=== PATIENT | female | born 1990 | race Caucasian/White ===

== ENCOUNTER 2018-10-18 18:07 | Emergency (ER) | payer OTHER ==
[2018-10-18 18:22] VITALS: BP 124/79; PULSE 56; TEMP 98.5; BMI 29.8
--- NOTE | 2018-10-18 19:05 | PDOC ---
History of Present Illness - General Chief Complaint: Cold Symptoms Stated Complaint: CHEST PAIN Time Seen by Provider: 10/18/18 18:23 History Source: Patient - History of Present Illness Presenting Symptoms: Chest Pain Past History - Past Medical History Allergies/Adverse Reactions: Allergies Allergy/AdvReac Type Severity Reaction Status Date / Time No Known Allergies Allergy Verified 09/01/15 01:32 Home Medications: Ambulatory Orders Methotrexate Sodium [Methotrexate] 2.5 mg PO ASDIR 10/18/18 Prednisone 5 mg PO ASDIR 10/18/18 Sulfasalazine 500 mg PO ASDIR 10/18/18 Sulfasalazine [Azulfidine] 500 mg PO ASDIR 10/18/18 Tocilizumab [Actemra] 162 mg SQ ASDIR 10/18/18 COPD: No - Immunization History Immunization Up to Date: Yes - Suicide/Smoking/Psychosocial Hx Smoking History: Never smoked Have you smoked in the past 12 months: No Number of Cigarettes Smoked Daily: 0 Cigars Per Day: 0 Information on smoking cessation initiated: No Hx Alcohol Use: No Drug/Substance Use Hx: No Substance Use Type: None Review of Systems - Review of Systems Constitutional: No: Chills, Fever Respiratory: No: Shortness of Breath Cardiac (ROS): No: Lightheadedness, Palpitations, Chest Tightness ABD/GI: No: Nausea, Vomiting *Physical Exam - Vital Signs Last Vital Signs Temp Pulse Resp BP Pulse Ox 98.5 F 56 L 17 124/79 99 10/18/18 18:17 10/18/18 18:17 10/18/18 18:17 10/18/18 18:17 10/18/18 18:17 - Physical Exam General Appearance: Yes: Appropriately Dressed. No: Apparent Distress HEENT: positive: Normal Voice Neck: positive: Supple. negative: Lymphadenopathy (R), Lymphadenopathy (L) Respiratory/Chest: positive: Lungs Clear, Normal Breath Sounds. negative: Respiratory Distress Cardiovascular: positive: Regular Rate, S1, S2 Integumentary: positive: Dry, Warm Neurologic: positive: Fully Oriented, Alert, Normal Mood/Affect Moderate Sedation - Procedure Monitoring Vital Signs: Procedure Monitoring Vital Signs Temperature 98.5 F 10/18/18 18:17 Pulse Rate 56 L 10/18/18 18:17 Respiratory Rate 17 10/18/18 18:17 Blood Pressure 124/79 10/18/18 18:17 O2 Sat by Pulse Oximetry (%) 99 10/18/18 18:17 ED Treatment Course - ADDITIONAL ORDERS Additional order review: Laboratory Results 10/18/18 19:00 Urine HCG, Qual Negative - RADIOLOGY Radiology Studies Ordered: Category Date Time Status CHEST PA & LAT [RAD] Stat Radiology 10/18/18 19:00 Taken Medical Decision Making - Medical Decision Making 10/18/18 19:00 27-year-old female, history of RA, not currently on steroids, here with intermittent chest tightness for several days. No shortness of breath, palpitations, URI symptoms, fever or chills. States whenever she gets symptoms she gets anxious. Was seen in urgent care today and had a EKG done and was told it was normal, but referred to ER for x-ray machine at urgent care was malfunctioning per patient. Currently asymptomatic. No obvious risk factors for DVT, PE. No similar sxs in past See exam Chest tightness Unlikely cardiac, PERCs out, no recent uri, possible anxiety component Neg EKG at today (has copy on person demonstrating NSR w/ no abnl) Sent to ED for CXR Pt well tracey and stable w/ clear chest/lungs -cxr pending -anticipate dc w/ pmd f/u 10/18/18 20:01 X-ray negative. Patient discharged in stable condition to follow-up with her PMD *DC/Admit/Observation/Transfer Diagnosis at time of Disposition: Chest tightness - Discharge Dispostion Disposition: HOME Condition at time of disposition: Good - Referrals Referrals: Brayan Salomon MD [Primary Care Provider] - - Patient Instructions Printed Discharge Instructions: DI for Chest Pain Additional Instructions: The cause of your symptoms are unclear at this time as your exam and chest x- ray were normal. If symptoms persist, please follow-up with your PMD - Post Discharge Activity
== END 2018-10-18 20:04 | disposition home or self-care (01) ==
LOC: JERFT 18:07
DX: R07.89 Other chest pain (principal); M06.9 Rheumatoid arthritis, unspecified
CPT/HCPCS: 71046-TC-FY; 84703; 99281-25

== ENCOUNTER 2019-04-24 23:35 | Emergency (ER) | payer OTHER ==
[2019-04-25 00:11] VITALS: BP 145/92; PULSE 64; TEMP 98.4; BMI 29.5
--- NOTE | 2019-04-25 00:39 | PDOC ---
History of Present Illness - General Chief Complaint: Pain, Acute Stated Complaint: BLOOD CLOT-RIGHT LEG Time Seen by Provider: 04/25/19 00:39 - History of Present Illness Initial Comments: 04/25/19 00:44 Ms. Tomlin is a 28 yo female w/ pmh of anemia and childhood rheumatoid arthritis who presents for evaluation of R calf pain. Patient reports she is concerned she may have a blood clot as she has been reading online about her symptoms. Reports pain has been intermittent over the last several days and pain is exacerbated by moving her leg. Denies any prolonged immobilization or other symptoms at this time. The patient denies chest pain, shortness of breath, headache and dizziness. Denies fever, chills, nausea, vomit, diarrhea and constipation. Denies dysuria, frequency, urgency and hematuria. Past History - Past Medical History Allergies/Adverse Reactions: Allergies Allergy/AdvReac Type Severity Reaction Status Date / Time No Known Allergies Allergy Verified 09/01/15 01:32 Home Medications: Ambulatory Orders Methotrexate Sodium [Methotrexate] 2.5 mg PO ASDIR 10/18/18 Prednisone 5 mg PO ASDIR 10/18/18 Sulfasalazine 500 mg PO ASDIR 10/18/18 Sulfasalazine [Azulfidine] 500 mg PO ASDIR 10/18/18 Tocilizumab [Actemra] 162 mg SQ ASDIR 10/18/18 Cephalexin [Keflex] 500 mg PO BID #14 capsule 04/25/19 COPD: No - Immunization History Immunization Up to Date: Yes - Suicide/Smoking/Psychosocial Hx Smoking History: Never smoked Have you smoked in the past 12 months: No Number of Cigarettes Smoked Daily: 0 Cigars Per Day: 0 Information on smoking cessation initiated: No Hx Alcohol Use: No Drug/Substance Use Hx: No Substance Use Type: None Review of Systems - Review of Systems Comments:: 04/25/19 00:46 GENERAL/CONSTITUTIONAL: No fever or chills. No weakness. HEAD, EYES, EARS, NOSE AND THROAT: No change in vision. No ear pain or discharge. No sore throat. CARDIOVASCULAR: No chest pain or shortness of breath RESPIRATORY: No cough, wheezing, or hemoptysis. GASTROINTESTINAL: No nausea, vomiting, diarrhea or constipation. GENITOURINARY: No dysuria, frequency, or change in urination. MUSCULOSKELETAL: +R calf pain as described. No neck or back pain. SKIN: No rash NEUROLOGIC: No headache, vertigo, loss of consciousness, or change in strength/ sensation. ENDOCRINE: No increased thirst. No abnormal weight change HEMATOLOGIC/LYMPHATIC: No anemia, easy bleeding, or history of blood clots. ALLERGIC/IMMUNOLOGIC: No hives or skin allergy. *Physical Exam - Vital Signs Last Vital Signs Temp Pulse Resp BP Pulse Ox 98.4 F 64 18 145/92 100 04/24/19 23:40 04/24/19 23:40 04/24/19 23:40 04/24/19 23:40 04/24/19 23:40 - Physical Exam Comments: 04/25/19 00:47 GENERAL: Awake, alert, and fully oriented, in no acute distress HEAD: No signs of trauma, normocephalic, atraumatic EYES: PERRLA, EOMI, sclera anicteric, conjunctiva clear ENT: Auricles normal inspection, hearing grossly normal, nares patent, oropharynx clear without exudates. Moist mucosa NECK: Normal ROM, supple, no lymphadenopathy, JVD, or masses LUNGS: No distress, speaks full sentences, clear to auscultation bilaterally HEART: Regular rate and rhythm, normal S1 and S2, no murmurs, rubs or gallops, peripheral pulses normal and equal bilaterally. ABDOMEN: Soft, nontender, normoactive bowel sounds. No guarding, no rebound. No masses EXTREMITIES: +Pain w/ palpation of R calf and flexing of foot. Mild warmth/ redness to right calf. Otherwise normal inspection, Normal range of motion, no edema. No clubbing or cyanosis. NEUROLOGICAL: Cranial nerves II through XII grossly intact. Normal speech, normal gait, no focal sensorimotor deficits SKIN: Warm, Dry, normal turgor, no rashes or lesions noted. 04/25/19 03:03 Medical Decision Making - Medical Decision Making 04/25/19 02:44 Ms. Tomlin is a 28 yo female w/ pmh as described who presents for evaluation of R calf pain. Patient denies any trauma, refuses any pain medication at this time. Patient evaluated with RLE US for r/o DVT. US negative for acute process. Patient given return precautions and will f/u outpatient as needed for further evaluation. Rx sent for prophylaxis for possible mild cellulitis given warmth/ redness. No other concern for acute process at this time. Discharging to home. *DC/Admit/Observation/Transfer Diagnosis at time of Disposition: Right calf pain - Discharge Dispostion Disposition: HOME - Prescriptions Prescriptions: Cephalexin [Keflex] 500 mg PO BID #14 capsule - Referrals Referrals: Brayan Salomon MD [Primary Care Provider] - - Patient Instructions Printed Discharge Instructions: DI for Calf Muscle Strain Additional Instructions: You were evaluated today in the ER for your calf pain. We performed an Ultrasound which was negative for any emergent process. We also sent a prescription to your pharmacy for prophylaxis. Take all medications as proscribed. We believe you are safe for discharge at this time. Please follow- up next week with primary care provider for further evaluation. Return to ER if any fever, chills, worsening of pain, or other concerning symptoms. - Post Discharge Activity
[2019-04-25] MEDS ORDERED: CEPHALEXIN MONOHYDRATE 500 MG CAPSULE (UD) PO ONE (03:01)
--- NOTE | 2019-04-25 03:03 | PDOC ---
Attending Attestation - Resident Resident Name: Jamie Aquino - ED Attending Attestation I have performed the following: I have examined & evaluated the patient, The case was reviewed & discussed with the resident, I agree w/resident's findings & plan - HPI HPI: 04/25/19 03:03 Pt has redness on her right lower leg; looks cellulitic. She is anxious that she may have a blood clot. - Physicial Exam PE: 04/25/19 03:07 Agree with resident exam - Medical Decision Making 04/25/19 03:07 Pt will get keflex for cellulitis; her sono ruled out DVT 04/25/19 03:33 Patient Name: MARIA ESTHER SCHOFIELD THIS IS A PRELIMINARY REPORT FROM [facility] CLERK DATE OF SERVICE: 2019-04-25 00:47:36 IMAGES: 21 EXAM: VENOUS DUPLEX UNILATERAL No evidence for DVT or politeal cyst right lower extremity
[2019-04-25] MEDS ORDERED: CEPHALEXIN MONOHYDRATE 500 MG CAPSULE (UD) ONE (03:05)
== END 2019-04-25 03:18 | disposition home or self-care (01) ==
LOC: JER 23:35
DX: S86.111A Strain of other muscle(s) and tendon(s) of posterior muscle group at lower leg level, right leg, initial encounter (principal); X58.XXXA Exposure to other specified factors, initial encounter; Y93.89 Activity, other specified; Y92.89 Other specified places as the place of occurrence of the external cause; Y99.8 Other external cause status; M79.661 Pain in right lower leg
CPT/HCPCS: 93971-TC; 99281-25

== ENCOUNTER 2019-06-07 22:16 | Emergency (ER) | payer OTHER | END 2019-06-07 23:47 | disposition home or self-care (01) | LOC: FER 22:16 ==

== ENCOUNTER 2022-05-25 09:02 | Day surgery (SDC) | payer OTHER ==
[~2022-05-25 09:02] MED LIST: ACETAMINOPHEN 500 MG TABLET (FP) PO ONE; DEXTROSE 5% IVPB ONE; METHYLPREDNISOLONE NA SUCC IVPB ONE; RITUXIMAB-ABBS 1,000 MG in DEXTROSE 5%-WATER - 400 ML IVPB ONE; WATER IVPB ONE; diphenhydrAMINE HCL 25 MG CAPSULE (FP) PO ONE
[2022-05-25] MEDS ORDERED: methylPREDNISolone NA SUCC 125 MG/2 ML VIAL IVPB ONE (09:30)
[2022-05-25] MEDS ORDERED: ACETAMINOPHEN 500 MG TABLET (FP) PO ONE (09:30)
[2022-05-25] MEDS ORDERED: diphenhydrAMINE HCL 25 MG CAPSULE (FP) PO ONE (09:30)
[2022-05-25] MEDS ORDERED: RITUXIMAB-ABBS 1,000 MG in DEXTROSE 5%-WATER - 400 ML IVPB ONE (10:00)
[2022-05-25 17:07] VITALS: BP 134/87; PULSE 72; RESP 18; TEMP 98.7
== END 2022-05-25 15:45 | disposition home or self-care (01) ==
LOC: JONCCHEMO 09:02 → J7W 09:04 → JONCCHEMO 15:45
PROVIDERS: ATTEND Internal Medicine Rheumatology
PROC: 3E03305 Introduction of Other Antineoplastic into Peripheral Vein, Percutaneous Approach (ICD-10-PCS; principal; 2022-05-25)
PROC: 3E0333Z Introduction of Anti-inflammatory into Peripheral Vein, Percutaneous Approach (ICD-10-PCS; 2022-05-25)
DX: Z51.11 Encounter for antineoplastic chemotherapy (principal); M08.88 Other juvenile arthritis, other specified site
CPT/HCPCS: 96367; 96413; 96415; Q5115

== ENCOUNTER 2022-06-08 09:32 | Day surgery (SDC) | payer OTHER ==
[~2022-06-08 09:32] MED LIST changes: -DEXTROSE 5% IVPB ONE; +METHYLPREDNISOLONE NA SUCC 100 MG in SODIUM CHLORIDE 50 ML IVPB ONE; -METHYLPREDNISOLONE NA SUCC IVPB ONE; -WATER IVPB ONE
[2022-06-08 15:45] VITALS: BP 151/83; PULSE 77; RESP 18; TEMP 99
== END 2022-06-08 15:45 | disposition home or self-care (01) ==
LOC: JONCCHEMO 09:32 → J7W 09:34 → JONCCHEMO 15:45
PROVIDERS: ATTEND Internal Medicine Rheumatology
PROC: 3E033GC Introduction of Other Therapeutic Substance into Peripheral Vein, Percutaneous Approach (ICD-10-PCS; principal; 2022-06-08)
DX: M08.80 Other juvenile arthritis, unspecified site (principal)
CPT/HCPCS: 96367; 96413; 96415; Q5115

== ENCOUNTER 2023-01-11 08:25 | Day surgery (SDC) | payer OTHER ==
[2023-01-11] MEDS ORDERED: ACETAMINOPHEN 500 MG TABLET (FP) PO ONE (10:00)
[2023-01-11] MEDS ORDERED: diphenhydrAMINE HCL 25 MG CAPSULE (FP) PO ONE (10:00)
[2023-01-11] MEDS ORDERED: METHYLPREDNISOLONE NA SUCC 100 MG in SODIUM CHLORIDE 50 ML IVPB ONE (10:00)
[2023-01-11] MEDS ORDERED: RITUXIMAB-ABBS 1,000 MG in DEXTROSE 5%-WATER - 400 ML IVPB ONE (10:30)
[2023-01-11 17:02] VITALS: PULSE 77; RESP 18; TEMP 98.4
[2023-01-11 17:05] VITALS: BP 121/66
== END 2023-01-11 14:30 | disposition home or self-care (01) ==
LOC: JCHEMO 08:25 → J7W 08:29 → JCHEMO 14:30
PROVIDERS: ATTEND Internal Medicine Rheumatology
DX: M08.90 Juvenile arthritis, unspecified, unspecified site (principal)
CPT/HCPCS: 96367; 96413; 96415; Q5115

== ENCOUNTER 2023-01-25 08:42 | Day surgery (SDC) | payer OTHER ==
[2023-01-25] MEDS ORDERED: ACETAMINOPHEN 500 MG TABLET (FP) PO ONE (10:00)
[2023-01-25] MEDS ORDERED: METHYLPREDNISOLONE NA SUCC 100 MG in SODIUM CHLORIDE 50 ML IVPB ONE (10:00)
[2023-01-25] MEDS ORDERED: diphenhydrAMINE HCL 25 MG CAPSULE (FP) PO ONE (10:00)
[2023-01-25] MEDS ORDERED: RITUXIMAB-ABBS 1,000 MG in DEXTROSE 5%-WATER - 400 ML IVPB ONE (10:30)
[2023-01-25 15:52] VITALS: BP 134/75; PULSE 65; RESP 20; TEMP 983
== END 2023-01-25 15:20 | disposition home or self-care (01) ==
LOC: JCHEMO 08:42 → J7W 08:42 → JCHEMO 15:20
PROVIDERS: ATTEND Internal Medicine Rheumatology
DX: M08.80 Other juvenile arthritis, unspecified site (principal)
CPT/HCPCS: 96413; 96415; Q5115

== ENCOUNTER 2023-04-13 19:12 | Emergency (ER) | payer OTHER ==
[2023-04-13 19:43] VITALS: BMI 27.3
[2023-04-13 20:48] LABS: HEMATOCRIT 43.6 % (32.4-45.2); HEMOGLOBIN 15.3 GM/dL (10.7-15.3); MCH 31.9 pg (25.7-33.7); MCHC 35.1 g/dl (32.0-36.0); MEAN CELL VOLUME 90.9 fl (80-96); MEAN PLT VOLUME 7.4 fl (7.5-11.1); PLATELET COUNT 433 10^3/uL (134-434); WHITE BLOOD COUNT 6.7 K/mm3 (4.0-10.0)
[2023-04-13] MEDS ORDERED: MIDAZOLAM HCL 2 MG/2 ML SINGLE DOSE VIAL IVPUSH ONE (20:59)
[2023-04-13] MEDS ORDERED: MIDAZOLAM HCL 2 MG/2 ML SINGLE DOSE VIAL ONE ×3 (21:00→21:52)
[2023-04-13 21:18] LABS: POTASSIUM 5.8 mmol/L (3.5-5.1)
[2023-04-13 21:20] LABS: CALCIUM 8.2 mg/dL (8.5-10.1)
[2023-04-13 21:21] LABS: ALBUMIN 3.5 g/dl (3.4-5.0); BLOOD UREA NITROGEN 12.1 mg/dL (7-18); MAGNESIUM 2.1 mg/dL (1.8-2.4)
[2023-04-13 21:24] LABS: CREATININE 0.5 mg/dL (0.55-1.3); PHOSPHOROUS 3.2 mg/dL (2.5-4.9)
[2023-04-13 21:25] LABS: BILIRUBIN,TOTAL 0.7 mg/dL (0.2-1); TOT PROT 6.9 g/dl (6.4-8.2)
[2023-04-13 22:00] VITALS: RESP 18; TEMP 98.1
[2023-04-13 23:20] LABS: COCAINE, UR NEGATIVE (NEGATIVE); METHADONE, UR NEGATIVE (NEGATIVE); URINE BARBITURATES NEGATIVE (NEGATIVE); URINE BENZODIAZEPINES NEGATIVE (NEGATIVE)
[2023-04-13 23:21] LABS: PHENCYCLIDINE,URINE NEGATIVE (NEGATIVE)
[2023-04-13 23:36] LABS: OPIATES, URI NEGATIVE (NEGATIVE); URINE AMPHETAMINES NEGATIVE (NEGATIVE)
[2023-04-13 23:37] LABS: EPI CELLS 8 /uL (0-25.1); HYALINE CASTS 1 /uL (0-3.1); PH,URINE 5.5 (5.0-8.0); URINE APPEARANCE CLEAR; URINE BACTERIA 350 /uL (0-1359); URINE BILIRUBIN NEGATIVE (NEGATIVE); URINE COLOR YELLOW; URINE GLUCOSE (UA) NEGATIVE (NEGATIVE); URINE KETONE NEGATIVE (NEGATIVE); URINE LEUK ESTERASE NEGATIVE (NEGATIVE); URINE NITRITE NEGATIVE (NEGATIVE); URINE PROTEIN NEGATIVE (NEGATIVE); URINE RBC 16 /uL (0-23.9); URINE UROBILINOGEN 0.2 mg/dL (0.2-1.0); URINE WBC 16 /uL (0-25.8)
[2023-04-14 01:10] VITALS: BP 110/83; PULSE 75
== END 2023-04-14 03:20 | disposition home or self-care (01) ==
LOC: JER 19:12
PROC: 3E033NZ Introduction of Analgesics, Hypnotics, Sedatives into Peripheral Vein, Percutaneous Approach (ICD-10-PCS; principal; 2023-04-13)
DX: F10.920 Alcohol use, unspecified with intoxication, uncomplicated (principal)
CPT/HCPCS: 36415; 70450-TC; 80053; 80307; 81003; 83735; 84100; 84439; 84443; 84703; 85027; 93005; 93010; 99285-25

== ENCOUNTER 2023-08-01 08:26 | Day surgery (SDC) | payer OTHER ==
[2023-08-01] MEDS ORDERED: ACETAMINOPHEN 500 MG TABLET (FP) PO ONE (09:00)
[2023-08-01] MEDS ORDERED: METHYLPREDNISOLONE NA SUCC 100 MG in SODIUM CHLORIDE 50 ML IVPB ONE (09:00)
[2023-08-01] MEDS ORDERED: diphenhydrAMINE HCL 25 MG CAPSULE (FP) PO ONE (09:00)
[2023-08-01] MEDS ORDERED: RITUXIMAB-ABBS 1,000 MG in DEXTROSE 5%-WATER - 400 ML IVPB ONE (09:30)
[2023-08-01 11:42] VITALS: RESP 18
[2023-08-01 15:16] VITALS: BP 109/52; PULSE 63; TEMP 98.9
== END 2023-08-01 15:17 | disposition home or self-care (01) ==
LOC: JONCCHEMO 08:26 → J7W 08:31 → JONCCHEMO 15:17
PROVIDERS: ATTEND Internal Medicine Rheumatology
DX: M08.80 Other juvenile arthritis, unspecified site (principal)
CPT/HCPCS: 96367; 96413; 96415; Q5115

== ENCOUNTER 2023-10-04 08:37 | Day surgery (SDC) | payer OTHER ==
[~2023-10-04 08:37] MED LIST changes: -RITUXIMAB-ABBS 1,000 MG in DEXTROSE 5%-WATER - 400 ML IVPB ONE
[2023-10-04 14:38] VITALS: TEMP 97
[2023-10-04 14:54] VITALS: BP 120/77; PULSE 64; RESP 18
== END 2023-10-04 14:50 | disposition home or self-care (01) ==
LOC: JCHEMO 08:37 → J7W 08:38 → JCHEMO 14:50
PROVIDERS: ATTEND Internal Medicine Rheumatology
DX: M08.80 Other juvenile arthritis, unspecified site (principal)
CPT/HCPCS: 96375; 96413; 96415; Q5115

== ENCOUNTER 2024-04-24 09:15 | Day surgery (SDC) | payer OTHER ==
[2024-04-24] MEDS: METHYLPREDNISOLONE NA SUCC 100 MG in SODIUM CHLORIDE 50 ML IVPB ONE (10:10)
[2024-04-24] MEDS: diphenhydrAMINE HCL 25 MG CAPSULE (FP) PO ONE (10:12)
[2024-04-24] MEDS: ACETAMINOPHEN 500 MG TABLET (FP) PO ONE (10:13)
[2024-04-24] MEDS: RITUXIMAB 1,000 MG in DEXTROSE 5%-WATER - 400 ML IVPB ONE (11:00)
[2024-04-24 19:14] VITALS: RESP 20; TEMP 97.8
[2024-04-24 19:20] VITALS: BP 127/76; PULSE 71
== END 2024-04-24 14:15 | disposition home or self-care (01) ==
LOC: JCHEMO 09:15
PROVIDERS: ATTEND Internal Medicine Rheumatology
DX: M08.80 Other juvenile arthritis, unspecified site (principal)
CPT/HCPCS: 96375; 96413; 96415; J9312

== ENCOUNTER 2024-05-11 08:53 | Day surgery (SDC) | payer OTHER ==
[~2024-05-11 08:53] MED LIST changes: +RITUXIMAB 1,000 MG in DEXTROSE 5%-WATER - 400 ML IVPB ONE
[2024-05-11] MEDS: ACETAMINOPHEN 500 MG TABLET (FP) PO ONE (10:15)
[2024-05-11] MEDS: diphenhydrAMINE HCL 25 MG CAPSULE (FP) PO ONE (10:15)
[2024-05-11] MEDS: METHYLPREDNISOLONE NA SUCC 100 MG in SODIUM CHLORIDE 50 ML IVPB ONE (10:25)
[2024-05-11] MEDS: RITUXIMAB 1,000 MG in DEXTROSE 5%-WATER - 400 ML IVPB ONE (11:13)
[2024-05-11 15:51] VITALS: BP 112/64; PULSE 63; RESP 18
[2024-05-11 16:04] VITALS: TEMP 98.4
== END 2024-05-11 15:00 | disposition home or self-care (01) ==
LOC: J7W 08:53 → JCHEMO 08:53
PROVIDERS: ATTEND Internal Medicine Rheumatology
DX: M08.80 Other juvenile arthritis, unspecified site (principal)
CPT/HCPCS: 96375; 96413; 96415; J9312